=== PATIENT | male | born 1955 | race Caucasian/White ===

== ENCOUNTER 2018-05-09 14:48 | Emergency (ER) | payer OTHER ==
[~2018-05-09] VITALS: Ht 167.6 cm; Wt 74.8 kg
[~2018-05-09 14:48] MED LIST: ALBIPROI; ALBU90I; ALPR.5 PO; AMIT10 PO; AZIT250 PO; CALCA500CH PO; CEPH500 PO; DIPH50 PO; DOXY100 PO; FLUSAL2505; FLUSAL2505 IH; FLUT110OIA; HYDACE5 PO; Ibuprofen Ib200 MG PO; LISI5 PO; MARIJUANA; NAPR550 PO; OXYACE10 PO; PRED10 PO; RXALBOI INH; SULTRIDS PO
[2018-05-09] MEDS ORDERED: Bactrim Ds Tab1 EACH PO (15:46)
== END 2018-05-09 15:55 | disposition home or self-care (01) ==
LOC: ER 14:48
DX: S61.216A Laceration without foreign body of right little finger without damage to nail, initial encounter (principal); Z23 Encounter for immunization; Z88.0 Allergy status to penicillin; Z87.891 Personal history of nicotine dependence; W01.0XXA Fall on same level from slipping, tripping and stumbling without subsequent striking against object, initial encounter
CPT/HCPCS: 12001; 29130; 73140; 90471; 90714; 99282-25

== ENCOUNTER 2018-05-19 12:16 | Emergency (ER) | payer OTHER ==
[~2018-05-19] VITALS: Ht 172.7 cm; Wt 72.6 kg
[~2018-05-19 12:16] MED LIST changes: +Bactrim Ds Tab1 EACH PO
== END 2018-05-19 12:36 | disposition home or self-care (01) ==
LOC: ER 12:16
DX: S61.411D Laceration without foreign body of right hand, subsequent encounter (principal); Z88.0 Allergy status to penicillin; Z79.899 Other long term (current) drug therapy; J44.9 Chronic obstructive pulmonary disease, unspecified; I10 Essential (primary) hypertension; Z87.891 Personal history of nicotine dependence

== ENCOUNTER 2019-09-22 02:14 | Emergency (ER) | payer OTHER ==
[~2019-09-22] VITALS: Ht 170.2 cm; Wt 74.8 kg
== END 2019-09-22 06:17 | disposition home or self-care (01) ==
LOC: ER 02:14
DX: S00.212A Abrasion of left eyelid and periocular area, initial encounter (principal); S00.211A Abrasion of right eyelid and periocular area, initial encounter; S50.311A Abrasion of right elbow, initial encounter; Z88.0 Allergy status to penicillin; V27.4XXA Motorcycle driver injured in collision with fixed or stationary object in traffic accident, initial encounter
CPT/HCPCS: 70450; 72125; 73080; 99284-25; L0160